=== PATIENT | male | born 1960 | race Caucasian/White ===

== ENCOUNTER 2017-01-17 12:29 | Emergency (ER) | payer OTHER ==
[~2017-01-17] VITALS: Ht 182.9 cm; Wt 132.3 kg
[2017-01-17 12:37] VITALS: TEMP 36.8; Ht 182.9 cm; Wt 132.3 kg
--- NOTE | 2017-01-17 13:28 | DIAGNOSTIC IMAGING REPORT ---
RIGHT RIBS UNILATERAL WITH PA CHEST CLINICAL HISTORY: Right rib pain. COMPARISON STUDY: No previous studies for comparison. FINDINGS: The erect chest reveals mild cardiac enlargement. There is a prominent left cardiophrenic angle fat pad. There is no pneumothorax. There is no focal pulmonary consolidation. No right-sided rib fractures are visualized. IMPRESSION: No evidence of pneumothorax. No right-sided rib fractures are visualized. Electronically signed by: Renato Lopez M.D. 01/17/2017 1:27 PM Dictated Date/Time: 01/17/2017 1:26 PM
[2017-01-17] MEDS ORDERED: OXYC1TAB3 PO (14:00)
--- NOTE | 2017-01-17 14:01 | EMERGENCY ROOM VISIT NOTE ---
History First contact with patient: 12:42 Chief Complaint: BACK PAIN Stated Complaint: BACK PAIN, LIFTING. WC History of Present Illness The patient is a 56 year old male who presents to the Emergency Room via private vehicle accompanied by fellow employee with complaints of "back pain, lifting. Workmen's Comp.". 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 He states that he was holding the door with one hand and lifting with another. He states that he then developed pain in the right mid back region that radiates around to the side. He notes that it hurts to move. He states it hurts to breathe. He denies any history of back injury, hearing any pops or cracks, history of heart problems or lung problems, history of blood clots, smoking, chest pain, shortness of breath. He rates the pain as an 8/10 and points to be mid rib region on the right lateral side as a location of the pain. Review of Systems A complete 6-point Review of Systems was discussed with the patient, with pertinent positives and negatives listed in the History of Present Illness. All remaining Review of Systems questions can be considered negative unless otherwise specified. Past Medical/Surgical History Kidney stones, wisdom teeth extraction, appendectomy, rotator cuff surgery, skin cancer removal Family History Diabetes, heart disease, blood pressure, cancer, lung disease, kidney disease or stones. Social History Smoking Status: Never Smoker Social History: Patient lives at home with , denies tobacco use and admits to alcohol use. Current/Historical Medications Scheduled PRN Oxycodone Ir (Roxicodone Ir), 1-2 TAB PO Q4H PRN for Pain Allergies Coded Allergies: No Known Allergies (Unverified , NONE, 01/17/17) Physical Exam Vital Signs Date Time Temp Pulse Resp B/P Pulse Ox O2 Delivery O2 Flow Rate FiO2 01/17/17 14:09 61 18 163/87 96 01/17/17 12:37 36.8 61 18 184/97 95 Room Air Physical Exam VITAL SIGNS - Vital signs and nursing notes were reviewed. The patient is afebrile, he is hypertensive at 184/97, non-tachycardic and saturating well on room air at 95%. GENERAL -56-year-old male appearing his stated age who is in no acute distress. Communicates well with provider and answers questions appropriately. SKIN - Without rashes. No breaks in the integument. HEAD - NC/AT. NECK - Neck with FROM. Supple to palpation. No nuchal rigidity. No C-spine processes tenderness. MUSCULOSKELETAL: There is tenderness to palpation overlying the right mid rib region that wraps around the right side. This is reproducible with palpation. LUNGS - Chest wall symmetric without accessory muscle use, intercostals retractions, or central cyanosis. Normal vesicular breath sounds CTA B/L. No wheezes, rales, or rhonchi appreciated. CARDIAC - RRR with S1/S2. No murmur, rubs, or gallops appreciated. ABDOMEN - Abdominal contour without pulsations or visible masses. BS normoactive all four quadrants. No tenderness, palpable masses, hepatosplenomegaly, or ascites noted. Medical Decision & Procedures ER Provider Diagnostic Interpretation: RIGHT RIBS UNILATERAL WITH PA CHEST CLINICAL HISTORY: Right rib pain. COMPARISON STUDY: No previous studies for comparison. FINDINGS: The erect chest reveals mild cardiac enlargement. There is a prominent left cardiophrenic angle fat pad. There is no pneumothorax. There is no focal pulmonary consolidation. No right-sided rib fractures are visualized. IMPRESSION: No evidence of pneumothorax. No right-sided rib fractures are visualized. Electronically signed by: Renato Lopez M.D. 01/17/2017 1:27 PM Dictated Date/Time: 01/17/2017 1:26 PM Medical Decision The patient was seen and evaluated as above. After obtaining a thorough history and physical examination it was apparent the patient was either experiencing what could be a rib fracture, cracked cartilage, cartilage disruption, muscle strain among others. I initially began with rib series and PA chest. This was negative for acute process. The patient was offered additional imaging studies however declined and I do believe this is appropriate as I do not suspect any emergent underlying cause and do believe that in the absence any acute fracture on radiograph this is likely either a small occult fracture of the ribs or a strain of the muscle. Given the patient' s history, clinically it sounds as though he may have strained the region. He was educated upon management, instructed to follow-up with his family doctor and approved Workmen's Compensation individual soon as possible, educated upon worrisome symptoms in which to return and was discharged home in good condition. I do not suspect any underlying acute process that is emergent. He will be given a short prescription for the OxyIR for his pain. In the evaluation treatment this patient the following differential diagnoses were entertained: Lumbar strain, fracture of the ribs, thoracic transverse processes fracture, kidney stone, [place], PE, among others. He is to follow up for the high blood pressure. [facility] Monitoring [facility] Search Results: patient reviewed within database, no issues identified Impression Primary Impression: Strain of mid-back Departure Information Dispostion Home / Self-Care Condition GOOD Prescriptions Oxycodone Ir (Roxicodone Ir) 5 Mg Tab 1-2 TAB PO Q4H Y for Pain, #15 TAB For Initial Treatment Prov: Jose Wood, JANE 01/17/17 Referrals Edd Conde D.O. (PCP) Patient Instructions My [facility] Additional Instructions You have been treated in the Emergency Department for Back Pain. You have likely strained the muscle in the right mid back. You have been prescribed oxycodone immediate release to be used for pain control. This is a narcotic medication. You cannot drive or consume alcohol while on this medicine. This medicine should only be used for pain that cannot be controlled with cxkf-mso-ayntaor pain medicines. For pain control, you can use the following [id number] medicines (if >12 yo): - Regular strength (325mg/tab) Tylenol (acetaminophen) 2 tabs every 4-6 hours as needed. Do not exceed 12 tablets in a 24 hour period. Avoid taking more than 4 grams (4000 mg) of Tylenol per day. This includes any other sources of acetaminophen you may take on a regular basis. - Regular strength (200 mg/tab) Advil (ibuprofen) 1-2 tabs every 4-6 hours as needed. Do not exceed a dose of 3200 mg per day. If this is an acute injury, ice can be applied to the area of pain for the first 3 days to help decrease pain and inflammation. After the first 3 days, a heating pad can be used over the area for continued soothing relief. You should schedule a follow-up appointment in 2-3 days with your Primary Care Provider for further evaluation and treatment of your back pain. Please call your Workmen's Compensation individuals to schedule follow-up. Return to the Emergency Department if your current symptoms worsen despite treatment course outlined above, or if you develop any of the following symptoms : intractable pain despite aforementioned treatment course, loss of control of your bowel or bladder, numbness or tingling in your groin, or development of a fever. Please return to the emergency department with any new/concerning symptoms. Problem Qualifiers Primary Impression: Strain of mid-back Encounter type: initial encounter Qualified Codes: S29.012A - Strain of muscle and tendon of back wall of thorax, initial encounter
[2017-01-17 14:09] VITALS: BP 163/87; PULSE 61; O2SAT 96
== END 2017-01-17 14:10 | disposition home or self-care (01) ==
LOC: C.EDB 12:30 → C.EDD 14:10
DX: S39.012A Strain of muscle, fascia and tendon of lower back, initial encounter (principal); X58.XXXA Exposure to other specified factors, initial encounter; Y92.89 Other specified places as the place of occurrence of the external cause; Y99.0 Civilian activity done for income or pay; Z87.442 Personal history of urinary calculi; Z98.890 Other specified postprocedural states; Z83.3 Family history of diabetes mellitus; Z82.49 Family history of ischemic heart disease and other diseases of the circulatory system; Z84.1 Family history of disorders of kidney and ureter; Z80.9 Family history of malignant neoplasm, unspecified